=== PATIENT | male | born 1990 | race Caucasian/White ===

== ENCOUNTER 2022-02-04 14:11 | Emergency (ER) | payer OTHER ==
[2022-02-04] MEDS ORDERED: MORPHINE 4 MG/ML SYR ONE (15:05)
[2022-02-04] MEDS ORDERED: CLINDAMYCIN 900MG/D5W 900 MG/50 ML IVPB IV ONE (15:05)
[2022-02-04] MEDS ORDERED: ONDANSETRON 4 MG/2 ML VIAL ONE (15:05)
[2022-02-04] MEDS ORDERED: LIDOCAINE 1% W/EPI 1:100,000 MDV 20 ML VIAL ONE (15:05)
[2022-02-04] MEDS ORDERED: NA CHLORIDE 0.9% 1,000 ML ONE (15:05)
[2022-02-04 15:14] LABS: Absolute Lymphocytes (CBC) 2.5 K/uL (0.7-4.9); Hematocrit 45.9 % (39.6-49.0); Lymphocytes % 21.2 % (15.3-44.8); MPV 9.8 fL (7.6-11.3); RBC Red Blood Cell Count 5.37 M/uL (4.33-5.43)
[2022-02-04 15:31] LABS: Bilirubin Total 0.5 mg/dL (0.2-1.0); Potassium 3.6 mmol/L (3.5-5.1); Protein, Total 7.7 g/dL (6.4-8.2)
--- NOTE | 2022-02-04 16:30 | ER ---
Nurse's Notes [facility] Name: Joel Montero Jr Age: 31 yrs Sex: Male : 1990 Arrival Date: 02/04/2022 Time: 14:14 Bed 12 Private MD: Diagnosis: Cutaneous abscess, unspecified-suprapubic area;Cellulitis of other sites-suprapubic area Presentation: 02/04 14:23 Chief complaint: Patient states: Abscess near the waist line, states has been there for vg1 a couple of days; [facility] tried to pop it and nothing would come out. Coronavirus screen: Vaccine status: Patient reports being unvaccinated. Client denies travel out of the [place] in the last 14 days. Ebola Screen: Patient denies exposure to infectious person. Patient denies travel to an Ebola-affected area in the 21 days before illness onset. Initial Sepsis Screen: Does the patient meet any 2 criteria? No. Patient's initial sepsis screen is negative. Does the patient have a suspected source of infection? No. Patient's initial sepsis screen is negative. Risk Assessment: Do you want to hurt yourself or someone else? Patient reports no desire to harm self or others. Onset of symptoms was February 04, 2022. 14:23 Method Of Arrival: Ambulatory vg1 14:23 Acuity: QUINN 3 vg1 Triage Assessment: 14:26 General: Appears uncomfortable, Behavior is calm, cooperative. Pain: Complains of pain vg1 in suprapubic area Pain currently is 4 out of 10 on a pain scale. at worst was 10 out of 10 on a pain scale. Derm: Skin is red, near suprapubic area. Historical: - Allergies: 14:26 No Known Allergies; vg1 - Home Meds: 14:26 None [Active]; vg1 - PMHx: 14:26 None; vg1 - PSHx: 14:26 None; vg1 - Immunization history:: Client reports having NOT received the Covid vaccine. - Social history:: Smoking status: Patient reports the use of cigarette tobacco products, smokes one pack cigarettes per day. Screenin:46 Abuse screen: Denies threats or abuse. Nutritional screening: No deficits noted. ll1 Tuberculosis screening: No symptoms or risk factors identified. 16:41 Fall Risk IV access (20 points). Total Arellano Fall Scale indicates No Risk (0-24 pts). ll1 Assessment: 14:46 Reassessment: No changes from previously documented assessment. Patient and/or family ll1 updated on plan of care and expected duration. Pain level reassessed. Patient is alert, oriented x 3, equal unlabored respirations, skin warm/dry/pink. 15:45 Reassessment: No changes from previously documented assessment. Patient and/or family ll1 updated on plan of care and expected duration. Pain level reassessed. Patient is alert, oriented x 3, equal unlabored respirations, skin warm/dry/pink. 16:41 Reassessment: No changes from previously documented assessment. Patient and/or family ll1 updated on plan of care and expected duration. Pain level reassessed. Patient is alert, oriented x 3, equal unlabored respirations, skin warm/dry/pink. Vital Signs: 14:23 BP 126 / 88; Pulse 95; Resp 16; Temp 98.0(O); Pulse Ox 100% ; Weight 90.72 kg; Height 5 vg1 ft. 7 in. (170.18 cm); Pain 4/10; 16:40 BP 121 / 81; Pulse 89; Resp 16; Pulse Ox 100% ; Pain 0/10; ll1 14:23 Body Mass Index 31.32 (90.72 kg, 170.18 cm) vg1 ED Course: 14:14 Patient arrived in ED. jj6 14:15 Juan Larios PA is PHCP. cp 14:16 Juan Reinoso MD is Attending Physician. cp 14:26 Triage completed. vg1 14:26 Arm band placed on. vg1 14:43 Stanley Mcnally, KELIN is Primary Nurse. ll1 14:43 Patient placed in an exam room, on a stretcher. ll1 14:46 Patient has correct armband on for positive identification. Bed in low position. Call ll1 light in reach. Cardiac monitoring not applicable on this patient. 16:28 Jhon Stanley MD is Referral Physician. cp 16:30 Inserted saline lock: 20 gauge in left antecubital area, using aseptic technique. Blood jw7 collected. 16:40 No provider procedures requiring assistance completed. IV discontinued, intact, ll1 bleeding controlled, No redness/swelling at site. Pressure dressing applied. Administered Medications: 15:08 Drug: NS 0.9% 1000 ml Route: IV; Rate: 1 bolus; Site: left antecubital; ll1 16:45 Follow up: Response: No adverse reaction; IV Status: Completed infusion; IV Intake: ll1 500ml 15:08 Drug: Clindamycin 900 mg Route: IVPB; Infused Over: 30 mins; Site: left antecubital; ll1 16:45 Follow up: Response: No adverse reaction; IV Status: Completed infusion; IV Intake: [id number] 15:09 Not Given (Patient Refused): morphine 4 mg IVP once over 4 mins ll1 15:09 Drug: Lidocaine-Epinephrine -1%: (1:100,000) 10 ml {Note: by Belinda Larios during I\T\D.} ll1 Volume: 20 ml; Route: Infiltration; 16:46 Follow up: Response: No adverse reaction ll1 15:09 Drug: Marcaine (bupivacaine) (0.5 %) 10 ml {Note: by Belinda Larios during I\T\D.} Volume: 10 ll1 ml; Route: Infiltration; 16:46 Follow up: Response: No adverse reaction ll1 16:35 Drug: Bactrim (trimethoprim-sulfamethoxazole) (160 mg-800 mg (DS) 2 tabs Route: PO; ll1 16:46 Follow up: Response: No adverse reaction ll1 Medication: 14:46 VIS not applicable for this client. ll1 Intake: 16:45 IV: 500ml; Total: 500ml. ll1 16:45 IV: 50ml; Total: 550ml. ll1 Outcome: 16:29 Discharge ordered by . cp 16:41 Discharged to home ambulatory. ll1 16:41 Condition: stable 16:41 Discharge instructions given to patient, Instructed on discharge instructions, follow up and referral plans. medication usage, wound care, Demonstrated understanding of instructions, follow-up care, medications, wound care, Prescriptions given X 3. 16:46 Patient left the ED. ll1 Signatures: Juan Larios PA PA cp Garcia, Victoria, RN RN vg1 Stanley Mcnally RN RN ll1 Helen Low6 She Whitaker jw7 Corrections: (The following items were deleted from the chart) 16:31 16:30 Inserted saline lock: 20 gauge in left antecubital area, using aseptic technique. jw7 Blood collected. jw7 16:46 16:46 BP 121 / 81; Pulse 89bpm; Resp 16bpm; Pulse Ox 100%; Pain 0/10; ll1 ll1
--- NOTE | 2022-02-04 16:31 | EDPHYS ---
Physician Documentation [facility] Name: Joel Montero Jr Age: 31 yrs Sex: Male : 1990 Arrival Date: 02/04/2022 Time: 14:14 Bed 12 Private MD: ED Physician Juan Reinoso HPI: 02/04 15:00 This 31 yrs old Male presents to ER via Ambulatory with complaints of Abscess. cp 15:00 The patient presents with an abscess of the suprapubic area. cp 15:00 Description: erythematous, warm. cp 15:00 Onset: The symptoms/episode began/occurred 2 day(s) ago. cp 15:00 Possible cause(s): unknown. Associated signs and symptoms: Pertinent negatives: cp discharge, drainage, fever. Severity of symptoms: in the emergency department the symptoms are actually worse. Historical: - Allergies: 14:26 No Known Allergies; vg1 - Home Meds: 14:26 None [Active]; vg1 - PMHx: 14:26 None; vg1 - PSHx: 14:26 None; vg1 - Immunization history:: Client reports having NOT received the Covid vaccine. - Social history:: Smoking status: Patient reports the use of cigarette tobacco products, smokes one pack cigarettes per day. ROS: 15:05 Constitutional: Negative for body aches, chills, fever, poor PO intake. cp 15:05 Eyes: Negative for injury, pain, redness, and discharge. cp 15:05 ENT: Negative for ear pain, sore throat, difficulty swallowing, difficulty handling secretions. 15:05 Cardiovascular: Negative for chest pain. 15:05 Respiratory: Negative for cough, shortness of breath, wheezing. 15:05 Abdomen/GI: Positive for abdominal pain, of the suprapubic area, Negative for vomiting, diarrhea, constipation. 15:05 Back: Negative for pain at rest, pain with movement. 15:05 Neuro: Negative for headache, weakness. 15:05 All other systems are negative. Exam: 15:10 Constitutional: The patient appears in no acute distress, alert, awake, non-toxic, well cp developed, well nourished, overweight 15:10 Head/Face: Normocephalic, atraumatic. cp 15:10 Eyes: Periorbital structures: appear normal, Conjunctiva: normal, no exudate, no injection, Lids and lashes: appear normal, bilaterally. 15:10 ENT: External ear(s): are unremarkable, Nose: is normal, Mouth: Lips: moist, Oral mucosa: moist, Posterior pharynx: Airway: no evidence of obstruction, patent. 15:10 Chest/axilla: Inspection: normal, Palpation: crepitus, is not appreciated, tenderness, is not appreciated. 15:10 Cardiovascular: Rate: normal, Rhythm: regular. 15:10 Respiratory: the patient does not display signs of respiratory distress, Respirations: normal, no use of accessory muscles, no retractions, labored breathing, is not present, Breath sounds: are clear throughout, no decreased breath sounds, no stridor, no wheezing. 15:10 Abdomen/GI: Bowel sounds: active, all quadrants, Palpation: soft, in all quadrants, moderate abdominal tenderness, in the suprapubic area, rebound tenderness, is not appreciated, involuntary guarding, is not appreciated. 15:10 Back: CVA tenderness, is absent. 15:10 Skin: abscess, that is small, of the suprapubic area, with surrounding cellulitis, that is mild. Vital Signs: 14:23 BP 126 / 88; Pulse 95; Resp 16; Temp 98.0(O); Pulse Ox 100% ; Weight 90.72 kg; Height 5 vg1 ft. 7 in. (170.18 cm); Pain 4/10; 16:40 BP 121 / 81; Pulse 89; Resp 16; Pulse Ox 100% ; Pain 0/10; ll1 14:23 Body Mass Index 31.32 (90.72 kg, 170.18 cm) vg1 MDM: 14:45 Patient medically screened. cp 16:29 Data reviewed: vital signs, nurses notes, lab test result(s). cp 16:29 Differential diagnosis: abscess, cellulitis, insect bite. Counseling: I had a detailed cp discussion with the patient and/or guardian regarding: the historical points, exam findings, and any diagnostic results supporting the discharge/admit diagnosis, lab results, the need for outpatient follow up, a general surgeon, to return to the emergency department if symptoms worsen or persist or if there are any questions or concerns that arise at home. Response to treatment: the patient's symptoms have markedly improved after treatment, and as a result, I will discharge patient. 02/04 14:50 Order name: CBC with Diff; Complete Time: 15:38 cp 02/04 15:38 Interpretation: Normal except: WBC 11.6; NEUT A 8.2. cp 02/04 14:50 Order name: CMP; Complete Time: 15:38 cp 02/04 14:50 Order name: IV Saline Lock; Complete Time: 15:08 cp 02/04 14:50 Order name: Labs collected and sent; Complete Time: 15:08 cp 02/04 14:50 Order name: I\T\D Setup; Complete Time: 15:08 cp 02/04 16:20 Order name: Wound dressing; Complete Time: 16:35 cp Administered Medications: 15:08 Drug: NS 0.9% 1000 ml Route: IV; Rate: 1 bolus; Site: left antecubital; ll1 16:45 Follow up: Response: No adverse reaction; IV Status: Completed infusion; IV Intake: ll1 500ml 15:08 Drug: Clindamycin 900 mg Route: IVPB; Infused Over: 30 mins; Site: left antecubital; ll1 16:45 Follow up: Response: No adverse reaction; IV Status: Completed infusion; IV Intake: [id number] 15:09 Not Given (Patient Refused): morphine 4 mg IVP once over 4 mins ll1 15:09 Drug: Lidocaine-Epinephrine -1%: (1:100,000) 10 ml {Note: by Belinda Larios during I\T\D.} ll1 Volume: 20 ml; Route: Infiltration; 16:46 Follow up: Response: No adverse reaction ll1 15:09 Drug: Marcaine (bupivacaine) (0.5 %) 10 ml {Note: by Belinda Larios during I\T\D.} Volume: 10 ll1 ml; Route: Infiltration; 16:46 Follow up: Response: No adverse reaction ll1 16:35 Drug: Bactrim (trimethoprim-sulfamethoxazole) (160 mg-800 mg (DS) 2 tabs Route: PO; ll1 16:46 Follow up: Response: No adverse reaction ll1 Disposition Summary: 02/04/22 16:29 Discharge Ordered Location: Home cp Problem: new cp Symptoms: have improved cp Condition: Stable cp Diagnosis - Cutaneous abscess, unspecified - suprapubic area cp - Cellulitis of other sites - suprapubic area cp Followup: cp - With: Jhon Stanley MD - When: 48 Hours - Reason: Worsening of condition Discharge Instructions: - Discharge Summary Sheet cp - Skin Abscess cp - Cellulitis, Adult cp Forms: - Medication Reconciliation Form cp - Thank You Letter cp - Antibiotic Education cp - Prescription Opioid Use cp - Work release form eb Prescriptions: - Clindamycin HCl 300 mg Oral Capsule - take 1 capsule by ORAL route every 6 hours for 10 days; 40 capsule; Refills: 0, cp Product Selection Permitted - Ibuprofen 800 mg Oral Tablet - take 1 tablet by ORAL route every 8 hours As needed take with food; 30 tablet; cp Refills: 0, Product Selection Permitted - Bactrim DS 800-160 mg Oral Tablet - take 1 tablet by ORAL route every 12 hours for 10 days; 20 tablet; Refills: 0, cp Product Selection Permitted Signatures: Dispatcher [employer] EDMS Juan Larios PA PA cp Garcia, Victoria, RN RN vg1 Stanley Mcnally RN RN ll1 Corrections: (The following items were deleted from the chart) 16:26 15:00 I \T\ D: Incision and drainage was performed for an abscess of the mid upper back cp Prepped with Betadine, Anesthetized with mixture 1% lidocaine and 0.5% marcaine. Incised with #11 blade. Drained small amount purulent fluid. bloody fluid. Packed with iodoform gauze, Dressing: sterile 4x4 gauze, the patient tolerated the procedure well, cp 16:28 14:57 Constitutional: The patient appears in no acute distress, alert, awake, cp non-toxic, well developed, well nourished, uncomfortable, cp 16:28 14:57 Head/Face: Normocephalic, atraumatic. cp cp 16:28 14:57 Eyes: Periorbital structures: appear normal, Conjunctiva: normal, no exudate, no cp injection, Sclera: no appreciated abnormality, Lids and lashes: appear normal, bilaterally, cp 16:28 14:57 ENT: External ear(s): are unremarkable, Nose: is normal, Posterior pharynx: cp Airway: no evidence of obstruction, patent, cp 16:28 14:57 Chest/axilla: Inspection: normal, cp cp 16:28 14:57 Cardiovascular: Rate: normal, Rhythm: regular, cp cp 16: 14:57 Respiratory: the patient does not display signs of respiratory distress, cp Respirations: normal, no use of accessory muscles, no retractions, labored breathing, is not present, Breath sounds: are clear throughout, no decreased breath sounds, cp 16: 14:57 Abdomen/GI: Inspection: obese Bowel sounds: active, all quadrants, Palpation: cp abdomen is soft and non-tender, in all quadrants, cp 16: 14:57 Back: pain, that is severe, of the mid upper back, cp cp 16: 14:57 Skin: abscess, that is moderate sized, of the mid upper back, with surrounding cp cellulitis, that is mild, cp 16: 14:57 Neuro: Orientation: to person, place \T\ time. Mentation: is normal, Motor: moves cp all fours, strength is normal, Sensation: is normal, cp
[2022-02-04] MEDS ORDERED: SMZ./TMP. 800/160 MG TABLET ONE (16:36)
[2022-02-04 16:54] VITALS: TEMP 98; O2SAT 100
[2022-02-04 16:57] VITALS: BP 121/81
== END 2022-02-04 16:46 | disposition home or self-care (01) ==
LOC: ER 14:11
DX: L03.818 Cellulitis of other sites (principal); F17.210 Nicotine dependence, cigarettes, uncomplicated
CPT/HCPCS: 96365; 85025; 36415; 80053; 99284; 96366; J7030; J2405